=== PATIENT | female | born 1965 | race Caucasian/White ===

== ENCOUNTER 2020-06-20 13:22 | Day surgery (SDC) | payer OTHER ==
[2020-06-17 08:24] VITALS: BMI 32.8
--- NOTE | 2020-06-19 11:47 | HP ---
HISTORY AND PHYSICAL DATE OF SURGERY: 06/20/2020 Tracy Beverly is a 54-year-old patient who was seen with symptomatic left knee osteoarthritis. After we discussed options for treatment, she elected to proceed with left total knee arthroplasty. Consent regarding the procedure was obtained. Medical clearance was provided by Dr. James. PAST MEDICAL HISTORY: Hypertension, depression, asthma. PAST SURGICAL HISTORY: Left knee arthroscopy. MEDICATIONS: BuSpar, Cymbalta, Klonopin, multivitamin, Singulair, trazodone, Ventolin, Xanax. ALLERGIES: PENICILLIN. SOCIAL HISTORY: She denies tobacco use. PHYSICAL EXAMINATION: Evaluation of the left knee, range of motion 0-130. There is tenderness along the medial joint line. Crepitus along the medial patellofemoral compartments with range of motion. There is pain with patellofemoral compression. Ligaments are stable. Hip rotation is without pain. Distal neurovascular exam is intact. RADIOGRAPHS: Radiographs of the left knee reveal severe osteoarthritic changes. IMPRESSION: 1. Left knee osteoarthritis. 2. Depression/anxiety. 3. Asthma. PLAN: Left total knee arthroplasty. MMODL / IJN: [id number] /
[~2020-06-20 13:22] MED LIST: ACETAMINOPHEN TAB 500 MG TAB PO ONE; DEXAMETHASONE SOD PHOSPHATE 10 MG/ML 1 ML VIAL IV ONE; HYDROmorphone 0.5 MG/0.5 ML SYRINGE IVP PRN; LIDOCAINE 1% (10MG/ML) FOR IV START INTRADERMA PRN; MELOXICAM 7.5 MG TAB PO ONE; ONDANSETRON 4 MG/2 ML VIAL IVP ONE; ROPIVACAINE 246.25 MG, EPINEPHrine 0.5 MG, KETOROLAC 30 MG, cloNIDine HCL/PF 80 MCG, WA... MISCELLANE ONE; SCOPOLAMINE 1.5MG/72HR PATCH TRANSDERM ONE; TRANEXAMIC ACID 1,000 MG in SODIUM CHLORIDE 0.9% 100 ML IVPB ONE
[2020-06-20] MEDS ORDERED: ACETAMINOPHEN TAB 500 MG TAB ONE (14:02)
[2020-06-20] MEDS ORDERED: ONDANSETRON 4 MG/2 ML VIAL ONE (14:03)
[2020-06-20] MEDS: LACTATED RINGERS 1,000 ML IV SCH ×2 (14:09→21:05)
[2020-06-20] MEDS ORDERED: fentaNYL (PF) 50 MCG/ML 2 ML AMP IVP ONE (14:44)
[2020-06-20] MEDS ORDERED: MIDAZOLAM 2 MG/2 ML VIAL IVP ONE (14:44)
[2020-06-20] MEDS ORDERED: SODIUM CHLORIDE 0.9% 100 ML BAG ONE (15:03)
[2020-06-20] MEDS ORDERED: fentaNYL (PF) 50 MCG/ML 2 ML AMP ONE (15:03)
[2020-06-20] MEDS ORDERED: MIDAZOLAM 2 MG/2 ML VIAL ONE (15:03)
[2020-06-20] MEDS ORDERED: TRANEXAMIC ACID 1,000 MG/10 ML VIAL ONE (15:03)
[2020-06-20] MEDS ORDERED: PROPOFOL 10 MG/ML 20 ML VIAL IV ONE (15:03)
[2020-06-20] MEDS ORDERED: ROPIVACAINE 0.2%-NS ON-Q PUMP 1,090 MG, EMPTY PAIN BALL 1 EACH MISCELLANE PRN (16:06)
--- NOTE | 2020-06-20 16:06 | P.ANPRN ---
Procedure Note - Anesthesia - Nerve Block Performed Left Adductor Canal Infusion Time Out Performed: Yes Date of Procedure: 06/20/20 Procedure Start Time: 14:44 Procedure Stop Time: 14:53 Location of Patient: PreOp Indication: Requested by Surgeon Specifically requested for management of pain by DrReagan: Syd Vizcarra Sedation Type: Sedate with meaningful contact maintained Preparation: Sterile Prep, Sterile Dressing Position: Supine Catheter: Indwelling Needle Types: Pajunk Needle Gauge: 18 Ultrasound used to visualize needle placement: Yes Ultrasound used to observe medication spread: Yes Injectate: 0.5% Ropivacaine (see comment for volume) (20 ml) Blood Aspirated: No Pain Paresthesia on Injection Noted: No Resistance on Injection: Normal Image Stored and Saved: Yes Events: Uneventful and Well Tolerated
[2020-06-20] MEDS ORDERED: HYDROmorphone 0.5 MG/0.5 ML SYRINGE IVP PRN ×2 (16:57)
[2020-06-20] MEDS ORDERED: HYDROmorphone 1 MG/ML 1 ML SYRINGE IVP PRN (16:57)
[2020-06-20] MEDS ORDERED: ONDANSETRON 4 MG/2 ML VIAL IVP PRN (16:57)
[2020-06-20] MEDS ORDERED: NALOXONE 0.4 MG/ML 1 ML VIAL IV PRN (16:57)
[2020-06-20] MEDS ORDERED: HYDROcodone/APAP 5-325MG 1 EACH TAB PO PRN (16:57)
--- NOTE | 2020-06-20 16:57 | P.OP ---
Date of Procedure: 06/20/20 Preoperative Diagnosis: Left knee osteoarthritis Postoperative Diagnosis: Left knee osteoarthritis Procedure(s) Performed: Left total knee arthroplasty Implants: 1. Depuy attune size 4 left cruciate retaining cemented femur 2. Depuy attune size 4 fixed bearing cemented tibial baseplate 3. Depuy attune size 4 fixed bearing cruciate retaining 14 mm polyethylene tibial insert 4. Depuy attune 38 mm all polyethylene cemented patella Anesthesia: regional (Adductor canal catheter), local, spinal Surgeon: Syd Vizcarra Day Worker #1: Sourav Hernandez Estimated Blood Loss (ml): 40 Pathology: other (Bone) Condition: stable Disposition: PACU Indications for Procedure: 54-year-old patient seen with symptomatic left knee osteoarthritis. After having treatment options discussed, she elected to proceed with left total knee arthroplasty. Operative Findings: See description of procedure Description of Procedure: Patient was taken to the operative suite after having an adductor canal catheter placed by the department of anesthesia. Patient underwent a spinal anesthetic by the department of anesthesia. Patient was given preoperative IV intake antibiotics and TXA. A well-padded tourniquet was placed about the left lower extremity. The lower extremity was then prepped and draped in the normal sterile orthopedic fashion. The extremity was elevated, a tourniquet was insufflated to 300. A standard anterior incision was made sharply through skin. Dissection was taken down through the subcutaneous soft tissues down to the extensor mechanism. A medial arthrotomy was performed, patella was everted and knee was flexed. There was advanced osteoarthritis noted. I introduced my distal intramedullary femoral drill. I then introduced the distal femoral cutting jig. Gregg FAIRCHILD secured the cutting jig with 2 pins. I held retractors in position while Gregg FAIRCHILD performed the distal femoral resection through the guide area we now removed her distal femoral cutting guide. We now placed our 4-in-1 femoral cutting block and positioned and it was secured with 2 pins by Gregg FAIRCHILD while I held the block in position. The distal femoral finishing was now completed. A proximal tibial cutting guide was positioned. I held the guide in the appropriate position with both hands well Gregg FAIRCHILD inserted stabilizing pins into the guide. Proximal tibial cut was made. We now placed a trial femoral component into position, along with an appropriate size tibial tray and insert. We now took the knee through range of motion and had full extension good flexion and good overall soft tissue balance noted. The patella was everted and stabilized with 2 towel clips held by Gregg FAIRCHILD while I performed a flush with patellar quad tendon utilizing a fresh sawblade. We templated the patella, appropriate drill holes were made. An appropriate trial patella was positioned, knee was taken through full range of motion with the patella tracking very nicely. The trial patella was removed. Drill holes were made through the femoral component. All trial components were removed after marking off the appropriate rotation of the tibia. Retractors were now positioned along the proximal tibia. An appropriate keel punch was made with the appropriate size tibial guide by myself on Gregg FAIRCHILD assisted by holding retractors. At this point appropriate size implants were chosen and opened. The joint was irrigated copiously with pulse lavage mechanical irrigation. The posterior capsule was infiltrated with local analgesic. The wound was irrigated with pulse lavage mechanical irrigation. We mixed antibiotic methylmethacrylate. We placed the knee into flexion. We placed multiple retractors assisted by Gregg FAIRCHILD to expose the proximal tibia. Once the methyl methacrylate was ready, the tibial component was cemented into place removing any excess methylmethacrylate form by both myself and Gregg FAIRCHILD. The femoral component was cemented into place removing the removing any excess methylmethacrylate performed by both myself and Gregg FAIRCHILD. We then inserted the appropriate size polyethylene tibial insert. We made sure that it was locked into position. We took the knee into full extension, and then back in a flexion making sure we had removed any excess methylmethacrylate. The patellar component was then cemented down and secured with clamp. Excess methylmethacrylate removed. We kept the knee in full extension, patellar clamp in position until methylmethacrylate had hardened. Once it had hardened the pat ellar clamp was removed. The knee was taken through full range of motion. The patella tracked nicely. There was good soft tissue balancing. The tourniquet was now released. Additional hemostasis was achieved via electrocautery. A second gram of TXA was given. The wound again was irrigated with pulse lavage mechanical irrigation. The superficial soft tissues were infiltrated local analgesic. The extensor mechanism was repaired with Vicryl. We checked the repair with range of motion and it was stable. The subcutaneous soft tissues were repaired with Vicryl in layers. The skin was approximated with pernio/Dermabond. Sterile dressings were applied followed by loose web roll and Nathanael bandage. The patient was transferred to a bed, and taken to recovery in stable and satisfactory condition. Gregg FAIRCHILD assisted with this complex procedure.
[2020-06-20] MEDS ORDERED: LACTATED RINGERS 1,000 ML IV ONE ×2 (17:03)
--- NOTE | 2020-06-20 17:54 | XR ---
EXAMINATION TYPE: XR knee limited LT DATE OF EXAM: 06/20/2020 COMPARISON: NONE HISTORY: Postop knee surgery TECHNIQUE: 2 views FINDINGS: There is left knee prosthesis. Components are in anatomic position. IMPRESSION: No complicating process seen.
[2020-06-20] MEDS ORDERED: SENNOSIDES-DOCUSATE SODIUM 1 EACH TAB PO SCH (21:00)
[2020-06-20] MEDS ORDERED: ALBUTEROL NEBULIZED 2.5 MG/3 ML INHALATION PRN (23:41)
[2020-06-21] MEDS ORDERED: clonazePAM 0.5 MG TAB PO PRN
[2020-06-21] MEDS: LACTATED RINGERS 1,000 ML IV SCH ×2 (05:14→06:26)
[2020-06-21] MEDS: HYDROcodone/APAP 7.5-325MG 1 EACH TAB PO PRN ×2 (07:26→14:28)
--- NOTE | 2020-06-21 07:40 | P.PN ---
Progress Note - Text Progress Note Date: 06/21/20 Postoperative day # 1 status post total knee arthroplasty, under spinal anesthesia, and adductor canal catheter placed for postoperative analgesia, currently at ropivacaine 0.2% 8 mL per hour and continuous infusion, patient using oral pain medication for breakthrough pain. Assessment and plan= Acute postoperative pain, adductor canal catheter for pain control, pain is well controlled we'll continue the same management. note= patient was seen at 06:52 am
[2020-06-21 07:48] VITALS: BP 109/79; PULSE 107; RESP 18; TEMP 98
[2020-06-21] MEDS ORDERED: IBUPROFEN 600 MG TAB PO PRN (08:00)
[2020-06-21 08:27] LABS: Basophils % (A) 0 %; Eosinophils % (A) 0 %; HCT 38.3 % (34.0-46.0); HGB 12.6 gm/dL (11.4-16.0); Lymphocytes # (A) 0.9 k/uL (1.0-4.8); Lymphocytes % (A) 6 %; MCHC 32.8 g/dL (31.0-37.0); MCV 91.4 fL (80.0-100.0); Mean Platelet Volume 7.1; Monocytes # (A) 0.6 k/uL (0-1.0); Monocytes % (A) 4 %; Neutrophils # (A) 13.8 k/uL (1.3-7.7); Neutrophils % (A) 90 %; Platelet Count 268 k/uL (150-450); RDW 12.9 % (11.5-15.5); WBC 15.4 k/uL (3.8-10.6)
[2020-06-21] MEDS ORDERED: ENOXAPARIN 30 MG/0.3 ML SYRINGE SQ SCH (09:00)
[2020-06-21] MEDS ORDERED: ASPIRIN 81 MG PO SCH (09:00)
[2020-06-21] MEDS ORDERED: MELOXICAM 7.5 MG TAB PO SCH (09:00)
[2020-06-21] MEDS ORDERED: busPIRone HCl 10 MG TAB PO SCH (09:00)
[2020-06-21] MEDS ORDERED: ATORVASTATIN 10 MG TAB PO SCH (09:00)
[2020-06-21] MEDS ORDERED: DULoxetine HCL 60 MG CAPSULE.DR PO SCH (09:00)
--- NOTE | 2020-06-21 10:04 | CONS ---
CONSULTATION Status post status post total knee left knee arthroscopy. She is having no pain, but she cannot move her knee. She wants to go to physical therapy. Her home medicines will be reordered. She is having no chest pain or shortness of breath. Home meds have been reordered. DuoNeb q.i.d., aspirin 81 daily, Lipitor 10 daily, BuSpar 30 b.i.d., Klonopin p.r.n., Cymbalta 120 q.a.m. Pain per Orthopedic surgery. 14-point review of systems negative. Cardiovascular: S1, S2. Lungs clear. GI soft. Hematology: Negative Homans. Psych: Fair mood and affect. Musculoskeletal: Knee wrapped. ASSESSMENT: 1. Status post knee replacement. 2. History of anxiety, depression. 3. Osteoarthritis. Continue home medicines. Otherwise clinically stable. Possible will need alf placement for rehab if she is unable to bend her knee, but we will see. Medically she is stable. MMODL / IJN: [id number] /
--- NOTE | 2020-06-21 12:07 | P.PN ---
Subjective Progress Note Date: 06/21/20 Principal diagnosis: status post left total knee arthroplasty Patient evaluated at bedside, she is resting comfortably. She's done very well with therapy. She has no acute pain. She denies chest pain or shortness of breath. Objective - Vital Signs Vital signs: Vital Signs Temp 98.0 F 06/21/20 07:12 Pulse 107 H 06/21/20 07:12 Resp 18 06/21/20 07:12 BP 109/79 06/21/20 07:12 Pulse Ox 95 06/21/20 07:12 Intake & Output 06/20/20 06/21/20 06/21/20 18:59 06:59 18:59 Intake Total 1350 250 Output Total 60 250 Balance 1290 0 Weight 84.1 kg Intake: IV 1350 Intake, IV Titration 250 Amount Lactated Ringers 1,000 ml 200 @ 100 mls/hr IV .Q10H GILDA Rx#:[id number] ceFAZolin 2 gm In Sodium 50 Chloride 0.9% 50 ml @ 100 mls/hr IVPB Q8HR GILDA Rx# :[id number] Output: Urine 250 Estimated Blood Loss 60 Other: # Voids 1 - Exam Left lower extremity: Incision is clean, dry, and intact. The foam dressing is in good condition. There is minimal soft tissue swelling and ecchymosis surrounding the medial and lateral aspects of the incision. Calf is soft, no tenderness with palpation. Plantar flexion, dorsiflexion, EHL, FHL are intact. Sensory exam to light touch throughout the extremity is intact, dorsal pedis pulses 2+. - Labs CBC & Chem 7: 06/21/20 07:01 Labs: Abnormal Lab Results - Last 24 Hours (Table) 06/21/20 Range/Units 07:01 WBC 15.4 H (3.8-10.6) k/uL Neutrophils # 13.8 H (1.3-7.7) k/uL Lymphocytes # 0.9 L (1.0-4.8) k/uL Assessment and Plan Assessment: Status post left total knee arthroplasty Plan: Pain control, plan for discharge home on oral medication GI and DVT prophylaxis, aspirin 81 mg twice a day Wound care instructions discussed/icing and elevating techniques discussed Home physical therapy and nursing Medical recommendations Plan for discharge home today Time with Patient: Less than 30
--- NOTE | 2020-06-21 12:13 | P.DS ---
Providers Date of admission: 06/20/2020 Expected date of discharge: 06/21/20 Attending physician: Syd Vizcarra Consults: 06/20/20 16:57 Consult Physician Routine Consulting Provider: Jasper Chen Reason/Comments: Medical management Do you want consulting provider notified?: Yes Primary care physician: Anastasiya Winston MD Hospital Course: Date of admission: 06/20/2020 Date of discharge: 06/21/2020 Admission diagnosis: Status post left total knee arthroplasty Discharge diagnosis: Same Attending physician: Dr. Vizcarra Surgical procedures: Total knee arthroplasty Brief history: Patient is a 54-year-old female with a history of progressive primary left knee osteoarthritis. At this point patient has failed conservative treatment measures and has opted to proceed with a elective left total knee arthroplasty. Hospital course: Details of patient's surgery can be found in operative report. Patient tolerated the procedure well and was subsequently transported to orthopedic floor. Patient's orthopeidc and medical care was provided daily. Patient had daily laboratory tests performed for evaluation of overall blood counts. Patient had daily physical therapy to include strengthening range of motion as well as education with walker ambulation. Patient was treated with Lovenox for their postoperative DVT prophylaxis during their inpatient stay. Rudy chang was noted to have a relatively uneventful postoperative course. Patient reported satisfactory pain control with oral pain medications by postoperative day 0. Patient showed satisfactory progress with physical therapy. Patient moved steadily through the program and had no difficulty meeting the goals by postoperative day 1. Given patient's otherwise satisfactory course and having met physical therapy goals, plan is to discharge patient home on postoperative day 1. Discharge condition/disposition: Patient will be discharged home in stable condition. Discharge medications: Instructions are given on resumption of patient's normal daily medications per primary care recommendation, in addition patient will be prescribed [place] 7.5 mg/325 mg, tramadol 50 mg, Colace 100 mg. Discharge instructions: 1. Wound care and infection precautions, keep incision dry and covered while showering, no lotions, creams, moisturizers. No soaking, tubs, pools, hottubs. Do not scrub over the incision. 2. Weight-bear as tolerated with walker / cane until follow-up. 3. Ice and elevate when necessary. Do not exceed 20 minutes per hour with ice pack. 4. Utilize compression sleeve until seen at first follow up appointment. 5. Visiting nursing care. 6. Home physical therapy including home CPM. 7. Pain meds and anticoagulants per prescription. 8. Pain medication has potential to cause constipation. Increase oral fluid and fiber intake. Contact primary care provider if you have not had a bowel movement within 48 hours after discharge 9. No anti-inflammatory medication until discussed at first post operative visit, this including Motrin, Aleve, Mobic, Diclofenac. 10. Follow up in office at 2 weeks postop with Gregg Hernandez PA-C 11. Follow up with your primary care doctor 7-10 days after discharge. 12. Contact [facility] with any questions, . Procedures: Left total knee arthroplasty Patient Condition at Discharge: Good Plan - Discharge Summary Discharge Rx Participant: No New Discharge Prescriptions: New Aspirin [Adult Low Dose Aspirin EC] 81 mg PO BID #60 tablet. Docusate [Colace] 100 mg PO DAILY #30 capsule HYDROcodone/APAP 7.5-325MG [[place] 7.5] 1 - 2 each PO Q6HR PRN #56 tab PRN Reason: Pain traMADol HCl [Ultram] 50 mg PO Q6H PRN #28 tab PRN Reason: Pain No Action EPINEPHrine (Auto Inject) [Epipen] 0.3 mg IM ONCE PRN PRN Reason: Anaphylaxis Albuterol Nebulized [Ventolin Nebulized] 2.5 mg INHALATION Q6H PRN PRN Reason: sob Irrigon-3 Fatty Acids/Fish Oil [Fish Oil 1,000 mg Softgel] 1 each PO DAILY Multivitamin [Multivitamins Adult Gummies] 1 each PO DAILY Aspirin 81 mg PO DAILY Ibuprofen [Motrin] 600 mg PO Q8HR PRN PRN Reason: Pain Albuterol Sulfate [Ventolin HFA] 1 - 2 puff INHALATION Q6H PRN PRN Reason: sob clonazePAM [KlonoPIN] 0.5 mg PO DAILY PRN PRN Reason: Anxiety DULoxetine HCL [Cymbalta] 120 mg PO QAM busPIRone HCL [Buspar] 30 mg PO BID Montelukast [Singulair] 10 mg PO HS Acetaminophen [Tylenol] 650 mg PO Q8H PRN PRN Reason: Pain Menthol [Icy Hot] 1 patch TRANSDERM DAILY PRN PRN Reason: Pain Atorvastatin [Lipitor] 1 tab PO DAILY Discharge Medication List Albuterol Nebulized [Ventolin Nebulized] 2.5 mg INHALATION Q6H PRN 06/15/20 [History] Albuterol Sulfate [Ventolin HFA] 1 - 2 puff INHALATION Q6H PRN 06/15/20 [History] DULoxetine HCL [Cymbalta] 120 mg PO QAM 06/15/20 [History] EPINEPHrine (Auto Inject) [Epipen] 0.3 mg IM ONCE PRN 06/15/20 [History] Ibuprofen [Motrin] 600 mg PO Q8HR PRN 06/15/20 [History] Montelukast [Singulair] 10 mg PO HS 06/15/20 [History] Multivitamin [Multivitamins Adult Gummies] 1 each PO DAILY 06/15/20 [History] Irrigon-3 Fatty Acids/Fish Oil [Fish Oil 1,000 mg Softgel] 1 each PO DAILY 06/15/20 [History] busPIRone HCL [Buspar] 30 mg PO BID 06/15/20 [History] clonazePAM [KlonoPIN] 0.5 mg PO DAILY PRN 06/15/20 [History] Acetaminophen [Tylenol] 650 mg PO Q8H PRN 06/17/20 [History] Menthol [Icy Hot] 1 patch TRANSDERM DAILY PRN 06/17/20 [History] Atorvastatin [Lipitor] 1 tab PO DAILY 06/20/20 [History] Aspirin [Adult Low Dose Aspirin EC] 81 mg PO BID #60 tablet. 06/21/20 [Rx] Docusate [Colace] 100 mg PO DAILY #30 capsule 06/21/20 [Rx] HYDROcodone/APAP 7.5-325MG [[place] 7.5] 1 - 2 each PO Q6HR PRN #56 tab 06/21/20 [Rx] traMADol HCl [Ultram] 50 mg PO Q6H PRN #28 tab 06/21/20 [Rx] Follow up Appointment(s)/Referral(s): [facility] [NON-STAFF] - As Needed (walker) Anastasiya Winston MD [Primary Care Provider] - 1 Week (office Closed at time of discahrge. Please call to make appointment) [facility], [NON-STAFF] - As Needed Sourav Hernandez PAC [PHYSICIAN INSTALLMENT DEALER] - 07/06/20 2:50 pm Tommy Sandoval [NON-STAFF] - As Needed (Continuous Passive Motion knee machine) Activity/Diet/Wound Care/Special Instructions: Orthopedic Discharge Instructions: 1. Wound care and infection precautions, [keep incision dry and covered while showering], no lotions, creams, moisturizers. No soaking, pools, hot tubs. Do not scrub over incision. 2. Weight-bear [as tolerated] with walker / cane until follow-up. 3. Ice and elevate when necessary. Do not exceed 20 minutes per hour with ice pack. 4. Utilize compression sleeve until seen at first follow up appointment. 5. Pain meds and anticoagulants per prescription. 6. Pain medication has potential to cause constipation. Increase oral fluid and fiber intake. Contact primary care provider if you have not had a bowel movement within 48 hours after discharge. 7. No anti-inflammatory medication until discussed at first post operative visit, this including Motrin, Aleve, Mobic, Diclofenac. 8. Follow up in office at 2 weeks postop with Gregg Hernandez PA-C 9. Follow up with your primary care doctor 7-10 days after discharge. 10. Contact [facility] with any questions, . Dressing instructions: 1. Please remove foam dressing 10 days postop, 06/30/2020 2. One foam dressing is on and after removed, continue to keep incision covered and dry while showering Discharge Disposition: HOME WITH HOME HEALTH SERVICES
[2020-06-21] MEDS ORDERED: MONTELUKAST 10 MG TAB PO SCH (21:00)
== END 2020-06-21 14:41 | disposition home health service (06) ==
LOC: OR 13:22 → 4SSUR 17:10 → OR 06-21 14:41
PROVIDERS: ATTEND Orthopaedic Surgery
DX: M17.12 Unilateral primary osteoarthritis, left knee (principal); I10 Essential (primary) hypertension; F32.9 Major depressive disorder, single episode, unspecified; J45.909 Unspecified asthma, uncomplicated; F41.9 Anxiety disorder, unspecified; Z91.018 Allergy to other foods; Z90.710 Acquired absence of both cervix and uterus; Z98.890 Other specified postprocedural states; Z90.722 Acquired absence of ovaries, bilateral; Z82.49 Family history of ischemic heart disease and other diseases of the circulatory system; Z83.6 Family history of other diseases of the respiratory system; Z83.518 Family history of other specified eye disorder; Q21.1 Atrial septal defect; Z79.899 Other long term (current) drug therapy; Z79.82 Long term (current) use of aspirin; Z88.0 Allergy status to penicillin
CPT/HCPCS: 97110; 97161; 64448; 76942; 85025; 88300; 73560; 27447; C1776; C1713; J2250; J0171; J1100; J0690 ×2; J2405; J3010; J1885; J1650; J2795; J2704; J0735; J1170

== ENCOUNTER → 2022-10-05 | Outpatient (CLI) | payer MEDICARE, OTHER ==
--- NOTE | 2022-10-05 20:04 | CT ---
EXAMINATION TYPE: CT sinus wo con CT DLP: 654.8 mGycm, Automated exposure control for dose reduction was used. DATE OF EXAM: 10/05/2022 5:38 PM COMPARISON: None. CLINICAL INDICATION:Female, 56 years old with history of J32.9 unsp chronic sinusitis CONTRAST: None. TECHNIQUE: Multiple thin axial images were obtained through the paranasal sinuses without the use of IV contrast. Additional coronal and sagittal reformatted images were submitted for evaluation. FINDINGS: Frontal sinuses: Aplastic bilaterally. Frontal Recess: Clear Modified Devers-Consuelo Score: Right 0 = 0% Opacified, Left 0 = 0% Opacified Maxillary Sinuses: Normally developed and aerated. Modified Devers-Consuelo Score: Right 1 = 1-25% Opacified, Left 1 = 1-25% Opacified Maxillary Infundibula([facility]): Clear, No Sen cells identified. Modified Nico-Consuelo Score: Right 0 = Completely patentLeft 0 = Completely patent Ethmoid sinuses: Normally developed and aerated. Ethmoidal notch: Modified Devers-Consuelo Score: Anterior Right 0 = 0% Opacified, Left 0 = 0% Opacified Posterior Right 0 = 0% Opacified, Left 0 = 0% Opacified Sphenoid sinuses: Normally developed and aerated. There is sellar sphenoid sinus pneumatization witho ut evidence of dehiscence. No dehiscence of carotid canal. No evidence of optic nerve dehiscence wit hin the sphenoid sinus. No evidence of Onodi cells. Sphenoethmoidal recesses: Clear. Modified Devers-[place] Score: Right 0 = 0% Opacified, Left 0 = 0% Opacified. Nasal septum: Within normal limits.. Nasal Turbinates: Within normal limits. Mastoid air cells & middle ears: The air cells are clear. The middle ears are grossly unremarkable. Modified Soft tissues & Brain: Partially seen without gross abnormality. Globes are intact. Other: Cribriform plate demonstrates symmetric Keros classification type 1 cribriform plate. No evidence of bony dehiscence of skull base. Lamina papyracea is intact without evidence of remote orbital fracture or orbital prolapse into the e thmoid sinus. IMPRESSION: 1. No significant mucosal sinus disease. 2. The ostiomeatal units and sphenoethmoidal recesses are clear. 3. Opacification burden of 2/54 on the Modified Devers-Consuelo scoring system.
== END | disposition home or self-care (01) ==
LOC: RADCTMAIN 17:10
PROVIDERS: ATTEND Otolaryngology
DX: J32.9 Chronic sinusitis, unspecified (principal)
CPT/HCPCS: 70486